=== PATIENT | female | born 2000 | race Caucasian/White ===

== ENCOUNTER 2019-06-27 10:45 | Emergency (ER) | payer MEDICAID ==
[~2019-06-27] VITALS: Ht 170.2 cm; Wt 131.8 kg
[2019-06-27 11:15] VITALS: Ht 170.2 cm; Wt 131.8 kg
[2019-06-27 11:38] LABS: BASOPHILS 0.1 % (0-2); EOSINOPHILS 1.4 % (0-7); HEMATOCRIT 40.4 % (36.0-48.0); HEMOGLOBIN 12.7 g/dL (12-16); IMMATURE GRANULOCYTES 0.1 % (0-5); LYMPHOCYTES 25.1 % (15-50); MCH 25.8 pg (26.0-34.0); MCHC 31.4 g/dL (31.0-37.0); MCV 81.9 fL (80.0-100.0); MEAN PLATELET VOLUME 10.2 fL (7.4-10.4); MONOCYTES 8.7 % (2-11); NEUTROPHILS 64.6 % (40-80); PLATELET COUNT 275 10x3/uL (130-400); RBC 4.93 10x6/uL (4.00-5.40); RDW 15.3 % (11.5-14.5); WBC 9.3 10x3/uL (4.8-10.8)
[2019-06-27 11:48] LABS: CALC OSMOLALITY 278 mosm/kg (275-300); CALCIUM 9.4 mg/dL (8.5-10.1); CARBON DIOXIDE 27.5 mmol/L (21.0-32.0); CHLORIDE - SERUM 105 mmol/L (98-107); CREATININE - SERUM 0.8 mg/dL (0.6-1.3); GLUCOSE 122 mg/dL (74-106); POTASSIUM - SERUM 3.7 mmol/L (3.5-5.1); SODIUM 140 mmol/L (136-145); UREA NITROGEN 11 mg/dL (7-18); eGFR NON AFRICAN AMERICAN > 90 mL/min (90-120)
[2019-06-27 11:54] LABS: ALBUMIN 4.1 g/dL (3.4-5.0); ALKALINE PHOSPHATASE 47 U/L (46-116); ALT (SGPT) 53 U/L (10-68); AMYLASE - SERUM 27 U/L (25-115); BILIRUBIN - TOTAL 0.36 mg/dL (0.2-1.3); LIPASE 120 U/L (73-393); PROTEIN - SERUM 7.9 g/dL (6.4-8.2)
[2019-06-27 13:03] LABS: APPEARANCE CLOUDY (CLEAR); BILIRUBIN NEGATIVE (NEGATIVE); COLOR YELLOW (YELLOW); GLUCOSE NEGATIVE (NEGATIVE); KETONE NEGATIVE (NEGATIVE); NITRITE NEGATIVE (NEGATIVE); PROTEIN 1+ mg/dL (NEGATIVE); SPECIFIC GRAVITY 1.025 (1.005-1.020); UROBILINOGEN NORMAL (NORMAL)
[2019-06-27 13:09] LABS: BACTERIA MODERATE /hpf (NEGATIVE); EPITHELIAL CELLS 0-5 /hpf (0-5); RED CELLS - URINE 25-50 /hpf (0-5)
[2019-06-27 13:10] LABS: MUCUS <1+ /lpf (NONE SEEN)
[2019-06-27 13:14] LABS: HCG URINE NEGATIVE (NEGATIVE)
[2019-06-27] MEDS ORDERED: TORADOL10 MG PO (14:21)
[2019-06-27] MEDS ORDERED: MACROBID100 MG PO (14:21)
[2019-06-27] MEDS ORDERED: FLOMAX0.4 MG PO (14:21)
[2019-06-27 15:05] VITALS: BP 112/65
== END 2019-06-27 15:00 | disposition home or self-care (01) ==
LOC: D.ER 10:45
PROVIDERS: Family Medicine
DX: N20.0 Calculus of kidney (principal)